=== PATIENT | male | born 1950 | race Caucasian/White ===

== ENCOUNTER → 2018-02-03 | Outpatient (CLI) | payer OTHER ==
[2018-02-03] MEDS: REGADENOSON 0.4 MG/5 ML DISP.SYRIN. IV (12:22)
== END | disposition home or self-care (01) ==
LOC: ECHO 07:51
DX: I10 Essential (primary) hypertension (principal); E11.9 Type 2 diabetes mellitus without complications; R06.09 Other forms of dyspnea; Z79.01 Long term (current) use of anticoagulants
CPT/HCPCS: 78452; 93017; 93306; 96374; 96375; 96376; A9500; J2785

== ENCOUNTER 2019-07-25 23:03 | Emergency (ER) | payer OTHER, MEDICARE ==
[~2019-07-25] VITALS: Ht 185.4 cm; Wt 117.9 kg
[~2019-07-25 23:03] MED LIST: ALPR1TAB6 PO; ASPI-630 PO; HYDR-3164 PO; LOSA-73 PO; METF500T16 PO
[2019-07-25] MEDS ORDERED: NAPR-514 PO (23:28)
[2019-07-25] MEDS ORDERED: METH-37 PO (23:28)
--- NOTE | 2019-07-25 23:28 | PHYS DOC ---
Adult General Chief Complaint Chief Complaint: LOWER BACK PAIN OR INJURY HPI HPI 69-year-old active male presents with low back pain. He states he was bent over hammering today and felt a sharp pain in his low back. He denies any radicular symptoms. He denies any bowel or bladder dysfunction. He denies any saddle paresthesias. He states the pain is moderate at this time and made worse with any movement. He states ordinarily he can shake this kind of pain but it seems to be more painful now than usual.[] Review of Systems Review of Systems Constitutional: Denies fever or chills [] Eyes: Denies change in visual acuity, redness, or eye pain [] HENT: Denies nasal congestion or sore throat [] Respiratory: Denies cough or shortness of breath [] Cardiovascular: No additional information not addressed in HPI [] GI: Denies abdominal pain, nausea, vomiting, bloody stools or diarrhea [] : Denies dysuria or hematuria [] Musculoskeletal: Per history of present illness[] Integument: Denies rash or skin lesions [] Neurologic: Denies headache, focal weakness or sensory changes [] Endocrine: Denies polyuria or polydipsia [] All other systems were reviewed and found to be within normal limits, except as documented in this note. Allergies Allergies Allergies Uncoded Allergies Type Severity Reaction Last Updated Verified POISON MANISHA Allergy Mild 02/03/18 Physical Exam Physical Exam Constitutional: Well developed, well nourished, mild to moderate distress, non- toxic appearance. [] HENT: Normocephalic, atraumatic, bilateral external ears normal, oropharynx moist, no oral exudates, nose normal. [] Eyes: PERRLA, EOMI, conjunctiva normal, no discharge. [] Neck: Normal range of motion, no tenderness, supple, no stridor. [] Cardiovascular:Heart rate regular rhythm, no murmur [] Lungs & Thorax: Bilateral breath sounds clear to auscultation [] Abdomen: Bowel sounds normal, soft, no tenderness, no masses, no pulsatile masses. [] Skin: Warm, dry, no erythema, no rash. [] Back: Right lumbar paraspinal muscle spasm no midline vertebral tenderness[] Extremities: No tenderness, no cyanosis, no clubbing, ROM intact, no edema. [] Neurologic: Alert and oriented X 3, normal motor function, normal sensory function, no focal deficits noted. [] Psychologic: Anxious. [] EKG EKG [] Radiology/Procedures Radiology/Procedures [] Course & Med Decision Making Course & Med Decision Making Pertinent Labs and Imaging studies reviewed. (See chart for details) [ED course: Evaluation reveals a 69-year-old male with mechanical back pain. He was given Toradol and Norflex during his stay in the department. I'll start him on an anti-inflammatory and a muscle relaxer to use at home. Patient did not have the type of injury where an x-ray was indicated I did explain this to the patient.] Dragon Disclaimer Dragon Disclaimer This electronic medical record was generated, in whole or in part, using a voice recognition dictation system. Departure Departure Impression: Primary Impression: Low back pain Disposition: HOME, SELF-CARE Condition: STABLE Referrals: NATHANIEL ZAPIEN MD (PCP) Patient Instructions: Back Pain, Adult Additional Instructions: Take medication as prescribed. Return to the emergency department with any new or concerning symptoms Scripts Methocarbamol (ROBAXIN) 500 Mg Tablet 1 TAB PO Q12HR for muscle spasm, #30 TAB Prov: LUPE KENDRICK DO 07/25/19 Naproxen (NAPROXEN) 500 Mg Tablet 1 TAB PO BID PRN for PAIN, #30 TAB 1 Refill Prov: LUPE KENDRICK DO 07/25/19 Problem Qualifiers Primary Impression: Low back pain Chronicity: acute Back pain laterality: right Sciatica presence: without sciatica Qualified Codes: M54.5 - Low back pain LUPE KENDRICK DO Jul 25, 2019 23:28
[2019-07-25 23:44] VITALS: BP 128/78
[2019-07-25] MEDS ORDERED: KETOROLAC 60 MG/2 ML VIAL. IM ONE (23:45)
[2019-07-25] MEDS ORDERED: ORPHENADRINE CITRATE 60 MG/2 ML VIAL. IM ONE (23:45)
== END 2019-07-26 00:04 | disposition home or self-care (01) ==
LOC: ER 23:03
DX: M54.5 Low back pain (principal); Z91.09 Other allergy status, other than to drugs and biological substances
CPT/HCPCS: 96372; 99284; J1885; J2360

== ENCOUNTER → 2019-10-12 | Outpatient (CLI) | payer OTHER ==
[~2019-10-12] MED LIST changes: +METH-37 PO; +NAPR-514 PO
--- NOTE | 2019-10-12 11:55 | KCIC ---
MR of left shoulder HISTORY: Left shoulder pain, chronic. TECHNIQUE: Routine multiplanar sequences are obtained. FINDINGS: The acromioclavicular joint is degenerative with undersurface osteophytes and mass effect. Full-thickness rupture of the supraspinatus tendon with retraction measuring up to 3.5 cm. Tendinosis and partial tearing through the infraspinatus tendon. Partial subscapularis tendon tear. Mild muscle atrophy. Small effusion in the glenohumeral joint and subacromial subdeltoid bursa. Mild DJD at the glenohumeral joint. The superior labrum is small and blunted. No evidence of labral detachment or tear. Proximal biceps tendon is poorly seen, tear is suspected. No acute fracture. No aggressive bone destruction. No acute soft tissue abnormality. IMPRESSION: 1. Large rotator cuff tear including a complete full-thickness retracted supraspinatus tendon rupture. 2. Blunted superior labrum and poorly seen proximal biceps tendon, suggesting a tear unless there has been surgical intervention. Electronically signed by: Orville Mccarty MD (10/12/2019 11:53 AM) [id number]
== END | disposition home or self-care (01) ==
LOC: KCIC MRI 09:19
PROVIDERS: ATTEND Orthopaedic Surgery
DX: M75.102 Unspecified rotator cuff tear or rupture of left shoulder, not specified as traumatic (principal); M66.811 Spontaneous rupture of other tendons, right shoulder; M19.012 Primary osteoarthritis, left shoulder; M62.58 Muscle wasting and atrophy, not elsewhere classified, other site
CPT/HCPCS: 73221